=== PATIENT | male | born 1945 | race Hispanic/Latino ===

== ENCOUNTER → 2023-03-06 | Outpatient (CLI) | payer OTHER ==
[~2023-03-06] MED LIST: ATOR40TA71 PO; LEVO-70 PO
[2023-03-06] MEDS: REGADENOSON 0.4 MG/5 ML PF SYG IVP ONE (14:46)
== END | disposition home or self-care (01) ==
LOC: SHCH 08:20
PROVIDERS: ATTEND Internal Medicine Cardiovascular Disease
DX: R94.39 Abnormal result of other cardiovascular function study (principal); I25.709 Atherosclerosis of coronary artery bypass graft(s), unspecified, with unspecified angina pectoris; R07.9 Chest pain, unspecified; I45.10 Unspecified right bundle-branch block
CPT/HCPCS: 78452; 93017; J2785; A9500 ×2; 96374